=== PATIENT | female | born 1950 | race Caucasian/White ===

== ENCOUNTER 2019-07-01 07:13 | Day surgery (SDC) ==
--- NOTE | 2019-06-26 08:43 | EKG Report ---
Test Performed on : 06/26/2019 08:36:54 AM Test Reason : pat Blood Pressure : / mmHG Vent. Rate : 088 BPM Atrial Rate : 088 BPM P-R Int : 122 ms QRS Dur : 086 ms QT Int : 392 ms P-R-T Axes : 089 078 076 degrees QTc Int : 474 ms Sinus rhythm. with fusion complexes with fusion or intermittent ventricular pre-excitation (WPW) Nonspecific ST abnormality Abnormal ECG When compared with ECG of 25-AUG-2014 12:53, fusion complexes are now present Sinus rhythm. is now with fusion or intermittent ventricular pre-excitation (WPW) T wave amplitude has increased in Inferior leads Confirmed by Marni Martinez MD ([id number]) on 06/27/2019 4:57:06 PM
[2019-06-26 08:54] LABS: URINE SOURCE CLEAN CATCH
[2019-06-26 09:05] LABS: BASO# 0.06 X1000 (0.0-0.2); BASO% 0.6 % (0.0-0.8); EOS# 0.13 X1000 (0.0-0.7); EOS% 1.4 % (0.0-10.0); HEMATOCRIT 42.1 % (37.0-47.0); HEMOGLOBIN 13.9 g/dL (12.0-16.0); LYMPH# 2.27 X1000 (1.2-3.4); LYMPH% 24.3 % (20.5-51.1); MCH 32.4 PG (27-31); MCV 98.1 FL (81-99); MONO# 0.79 X1000 (0.11-0.59); MONO% 8.5 % (1.7-9.3); MPV 10.6 FL (7.4-10.4); NEUT# 6.08 X1000 (1.4-6.5); NEUT% 65.2 % (42.2-75.2); PLT 292 X1000 (130-400); RBC 4.29 XMIL (4.2-5.4); WBC 9.33 X1000 (4.8-10.8)
[2019-06-26 09:11] LABS: BILIRUBIN URINE NEGATIVE (NEGATIVE); BLOOD URINE NEGATIVE (NEGATIVE); COLOR YELLOW; GLUCOSE URINE NEGATIVE (NEGATIVE); KETONE URINE NEGATIVE (NEGATIVE); LEUKOCYTES URINE SMALL (NEGATIVE); NITRITE URINE NEGATIVE (NEGATIVE); PH URINE 6.5; PROTEIN URINE NEGATIVE (NEGATIVE); SP GRAVITY URINE 1.007; TURBIDITY URINE CLEAR (CLEAR); UROBILINOGEN URINE NORMAL (NORMAL)
[2019-06-26 09:13] LABS: UR EPITHELIAL CELLS <10 /HPF (<10); URINE BACTERIA NEGATIVE /HPF; URINE RBC <10 /HPF (<10); URINE WBC <10 /HPF (<10)
[2019-06-26 09:16] LABS: INR 0.9; PROTIME 12.2 Seconds (11.0-16.0)
[2019-06-26 09:17] LABS: PTT 40.5 Seconds (22.3-41.8)
[2019-06-26 09:19] LABS: HEMOGLOBIN A1C 5.4 % (4.8-6.0)
[2019-06-26 09:30] LABS: AGAP 12; BUN 8 mg/dL (8-22); CALCIUM 9.6 mg/dL (8.8-10.2); CHLORIDE 98 mmol/L (98-107); COSMO 277; CREATININE 0.6 mg/dL (0.5-0.9); ESTIMATED GFR > 60; GLUCOSE 87 mg/dL (70-104); POTASSIUM 3.3 mmol/L (3.5-5.1); SODIUM 140 mmol/L (136-145); TCO2 30 mmol/L (25-35)
[2019-07-01] MEDS ORDERED: LR 1,000 ML ONE (07:44)
[2019-07-01] MEDS ORDERED: REGLAN ONE (07:44)
[2019-07-01] MEDS ORDERED: COLACE ONE (07:44)
[2019-07-01] MEDS ORDERED: LYRICA ONE (07:44)
[2019-07-01] MEDS ORDERED: PEPCID ONE (07:44)
[2019-07-01] MEDS ORDERED: CELEBREX ONE (07:44)
[2019-07-01] MEDS ORDERED: KEFZOL 1 GM/D5W 1 GM/50 ML IVPB ONE (07:45)
[2019-07-01] MEDS ORDERED: DIPRIVAN 1% ONE (08:13)
[2019-07-01] MEDS ORDERED: VERSED ONE (08:17)
[2019-07-01] MEDS ORDERED: FENTANYL ONE (08:20)
[2019-07-01] MEDS ORDERED: DURAMORPH ONE (08:27)
[2019-07-01] MEDS ORDERED: MARCAINE 0.25% PF ONE (08:28)
[2019-07-01] MEDS ORDERED: TORADOL ONE ×2 (08:28→09:56)
[2019-07-01] MEDS ORDERED: VANCOMYCIN ONE (08:28)
[2019-07-01] MEDS ORDERED: SODIUM CHLORIDE 0.9% ONE (08:28)
[2019-07-01] MEDS ORDERED: NEOSPORIN G.U. IRRIGANT ONE (08:29)
[2019-07-01] MEDS ORDERED: EXPAREL 1.3% ONE (08:29)
[2019-07-01] MEDS: CYKLOKAPRON 1,000 MG/NS 2,000 MG/200 ML IVPB ONE ×2 (09:30→10:28)
[2019-07-01] MEDS ORDERED: DECADRON ONE (09:56)
[2019-07-01] MEDS ORDERED: SODIUM CHLORIDE 0.9% 10 ML ONE (09:56)
[2019-07-01] MEDS ORDERED: XYLOCAINE-MPF 2% ONE (09:56)
[2019-07-01] MEDS ORDERED: ZOFRAN ONE (09:56)
[2019-07-01] MEDS ORDERED: DILAUDID ONE (09:56)
[2019-07-01] MEDS ORDERED: OFIRMEV 1000 MG/ISOTONIC SOLN 1,000 MG/100 ML BOTTLE ONE (09:56)
--- NOTE | 2019-07-01 11:38 | OPERATIVE NOTE ---
PROCEDURE DATE: 07/01/2019 PREOPERATIVE DIAGNOSIS: Degenerative joint disease, left knee. POSTOPERATIVE DIAGNOSIS: Degenerative joint disease, left knee. PROCEDURE PERFORMED: Left total knee replacement. SURGEON: Federico Brand M.D. JUNIOR BUSINESS ANALYST: JI Cotton. Mr. Hdez was necessary for proper retraction and manipulation during the case. ANESTHESIA: General. COMPLICATIONS: None. PROCEDURE IN DETAIL: This 69-year-old female presents for a left knee replacement. Risks, benefits, and no guarantees were discussed, and she is willing to proceed. She was taken to the operating room, and satisfactory anesthesia obtained. The left knee was prepped and draped in the usual sterile fashion. A time-out was taken to confirm operative site, procedure, and patient. The leg was wrapped with an Esmarch, and tourniquet inflated to 300 mmHg. A midline incision was made over the front of the knee, followed by a quad tendon-sparing arthrotomy. The patella was everted and resurfaced with freehand technique. The patella was subluxed laterally, and the knee flexed. An intramedullary hole made in the distal femur, and the distal femoral cutting block secured in 5 degrees of valgus with a 10 mm resection. The distal femur was resected, and the femur was sized to a size 5 DePuy [place]-Tetraune implant. The 4-in-1 block was secured, and the anterior, posterior, and chamfer cuts sequentially made, with care taken to preserve the collateral ligaments and posterior cruciate ligament. The remaining osteophytes were debrided with a rongeur. The knee was flexed, and a PCL retractor placed behind the tibia to protect the neurovascular bundle and PCL. The tibial cutting block was secured, and the tibial resection made. Flexion and extension gaps were equal with a 7 mm spacer. The tibia was sized to a size 4 tibial tray. A trial reduction was performed with trial implants with good range of motion and stability. The patella was sized to a 35 medialized dome patella. The drill paddle was used to prepare for the patellar implant, as well as for the femoral lug holes, and the trial components removed. The bony surfaces were thoroughly irrigated with pulsatile lavage. Cement with a gram of vancomycin was then utilized to cement a size 4 rotating platform Attune tibial base plate, a size 5 cruciate retaining narrow Attune left femoral component, and a 35 medialized dome patella. Excess cement was removed with a [place] elevator as necessary. After removal of the cement, the knee was maintained in extension with a 7 mm spacer while the cement hardened. The joint capsule was injected at this time with Exparel for pain management, and a Hemovac drain placed. After hardening of the cement, the 7 mm rotating platform cruciate retaining polyethylene bearing was inserted into the tibial tray, and the knee reduced. Final range of motion was 0 to 130 degrees with midline patellar tracking. The wound was copiously irrigated with irrigant. It was closed over the drain with #1 Vicryl in the arthrotomy, 2-0 Vicryl in the subcu, and skin oli on the skin edges and a Prineo closure on the skin. Sterile dressings were applied, and tourniquet released with good return of capillary blood flow. She was recovered from anesthesia, and transferred to the recovery room in stable condition. No intraoperative complications were noted. Instrument count and sponge count were correct at the time of closure. cc: Federico Brand MD
[2019-07-01] MEDS ORDERED: OXY IR ONE (11:48)
[2019-07-01] MEDS ORDERED: NS 1,000 ML ONE (11:49)
[2019-07-01] MEDS: DILAUDID ONE ×2 (11:49→11:53)
--- NOTE | 2019-07-01 11:53 | Diag Imaging Result Doc PS360 ---
EXAM: KNEE 1-2 VIEWS-LEFT 07/01/2019 HISTORY: post op total knee TECHNIQUE: Two views portable COMMENT: There is a total knee arthroplasty. There is no evidence of acute fracture or other bony abnormality. IMPRESSION: Postsurgical change. Electronically signed by Neil Madrid 07/01/2019 11:51 AM
[2019-07-01] MEDS ORDERED: OXY IR PO PRN ×2 (12:00)
[2019-07-01] MEDS ORDERED: ZOFRAN IV PRN (12:00)
[2019-07-01] MEDS ORDERED: MORPHINE IV PRN ×3 (12:00)
[2019-07-01] MEDS: TYLENOL PO SCH ×2 (14:00→21:47)
[2019-07-01] MEDS: ULTRAM PO SCH ×2 (14:00→21:47)
--- NOTE | 2019-07-01 14:41 | ORTHOPAEDICS PROGRESS NOTE ---
DATE: 07/01/2019 Ms. Hubbard is seen status post total knee replacement. She is awake and alert, but still somewhat sedated from anesthesia. She is in the recovery room. The bandage is clean and dry. She is able to wiggle the toes up and down actively. There is good capillary refill. There is no immediate postoperative complications. X-ray showed good alignment of the total knee. She appears to be stable at this point in the recovery room. We will plan on mobilizing her later today and home when she is mobilizing independently. cc: Federico Brand MD
[2019-07-01] MEDS: KEFZOL 1 GM/D5W 1 GM/50 ML IVPB IV SCH (18:09)
[2019-07-01] MEDS: NS 1,000 ML IV SCH (18:25)
[2019-07-01] MEDS ORDERED: PRAVACHOL PO SCH (21:00)
[2019-07-01] MEDS ORDERED: ZETIA PO SCH (21:00)
[2019-07-01 21:17] LABS: URINE SOURCE CATH
[2019-07-01 21:26] LABS: BILIRUBIN URINE NEGATIVE (NEGATIVE); BLOOD URINE NEGATIVE (NEGATIVE); COLOR YELLOW; GLUCOSE URINE NEGATIVE (NEGATIVE); KETONE URINE NEGATIVE (NEGATIVE); LEUKOCYTES URINE NEGATIVE (NEGATIVE); NITRITE URINE NEGATIVE (NEGATIVE); PH URINE 7.5; PROTEIN URINE NEGATIVE (NEGATIVE); SP GRAVITY URINE 1.006; TURBIDITY URINE CLEAR (CLEAR); UROBILINOGEN URINE NORMAL (NORMAL)
[2019-07-01 21:28] LABS: UR EPITHELIAL CELLS <10 /HPF (<10); URINE BACTERIA NEGATIVE /HPF; URINE RBC <10 /HPF (<10); URINE WBC <10 /HPF (<10)
[2019-07-01] MEDS: PERIDEX MT SCH (21:47)
[2019-07-01] MEDS: CELEBREX PO SCH (21:47)
[2019-07-01] MEDS: COLACE PO SCH (21:47)
[2019-07-01] MEDS ORDERED: VANCOMYCIN 1 GM/NS 1 GM/250 ML IVPB IV ONE (22:00)
[2019-07-01] MEDS: NEURONTIN PO SCH (23:18)
[2019-07-01] MEDS: BUSPAR PO SCH (23:18)
[2019-07-02] MEDS: KEFZOL 1 GM/D5W 1 GM/50 ML IVPB IV SCH (01:15)
[2019-07-02] MEDS: NS 1,000 ML IV SCH (02:41)
[2019-07-02] MEDS: ULTRAM PO SCH ×2 (02:42→08:31)
[2019-07-02] MEDS: TYLENOL PO SCH ×2 (02:42→08:30)
[2019-07-02 07:16] LABS: HEMATOCRIT 36.2 % (37.0-47.0); HEMOGLOBIN 11.7 g/dL (12.0-16.0)
[2019-07-02 07:29] LABS: AGAP 11; BUN 8 mg/dL (8-22); CALCIUM 9.1 mg/dL (8.8-10.2); CHLORIDE 100 mmol/L (98-107); COSMO 279; CREATININE 0.7 mg/dL (0.5-0.9); ESTIMATED GFR > 60; GLUCOSE 115 mg/dL (70-104); POTASSIUM 4.2 mmol/L (3.5-5.1); SODIUM 140 mmol/L (136-145); TCO2 29 mmol/L (25-35)
[2019-07-02 07:55] VITALS: BP 136/57
[2019-07-02] MEDS: COLACE PO SCH (08:30)
[2019-07-02] MEDS: PERIDEX MT SCH (08:31)
[2019-07-02] MEDS: BUSPAR PO SCH (08:31)
[2019-07-02] MEDS: CELEBREX PO SCH (08:31)
[2019-07-02] MEDS: NEURONTIN PO SCH (08:32)
--- NOTE | 2019-07-02 08:37 | ORTHOPAEDICS PROGRESS NOTE ---
DATE: 07/02/2019 Ms. Hubbard is seen status post knee replacement. At the present time, she is afebrile with stable vital signs. Blood pressure is stable. We will plan on mobilizing her today. She can be discharged with home therapy. I will follow up with her in a week. She is on her usual medicines including Bactrim for antibacterial prophylaxis, aspirin for DVT prophylaxis, and [place] for pain medicine. We will see her back in 2 weeks or sooner for any worsening signs or symptoms. cc: Federico Brand MD
[2019-07-02] MEDS ORDERED: FLEXERIL PO SCH (09:00)
[2019-07-02] MEDS ORDERED: PEPCID PO SCH (09:00)
[2019-07-02] MEDS ORDERED: VITAMIN D PO SCH (09:00)
[2019-07-02] MEDS ORDERED: CYMBALTA PO SCH (09:00)
[2019-07-02] MEDS ORDERED: ASPIRIN PO SCH (09:00)
[2019-07-02] MEDS ORDERED: NORVASC PO SCH (09:00)
== END 2019-07-02 10:58 | disposition home or self-care (01) ==
LOC: OR 07:13 → 4N 07:13 → OR 07-02 10:58
PROVIDERS: ATTEND Orthopaedic Surgery Adult Reconstructive Orthopaedic Surgery